=== PATIENT | female | born 2000 | race Hispanic/Latino ===

== ENCOUNTER 2019-03-14 00:09 | Emergency (ER) | payer MEDICAID ==
[2019-03-14 00:51] LABS: BASOPHILS % (AUTO) 0.3 % (0.0-5.0); EOSINOPHILS % (AUTO) 1.7 % (0.0-8.0); HEMATOCRIT 35.5 % (36-48); LYMPHOCYTES % (AUTO) 33.2 % (21.0-51.0); MEAN CORPUSCULAR HEMOGLOBIN 30.5 pg (27.0-33.0); MEAN CORPUSCULAR HGB CONC 34.9 g/dL (32.0-36.0); MEAN CORPUSCULAR VOLUME 87.4 fL (80-100); MONOCYTES % (AUTO) 8.4 % (3.0-13.0); NEUTROPHILS % (AUTO) 56.2 % (40.0-77.0); PLATELET COUNT (AUTO) 148 K/uL (130-400); RED BLOOD CELL COUNT(AUTO) 4.06 MIL/uL (4.00-5.50); RED CELL DISTRIBUTION WIDTH 12.2 % (11.0-15.5); WHITE BLOOD COUNT (AUTO) 6.1 K/uL (4.8-10.8)
[2019-03-14 00:53] LABS: APPEARANCE,URINE Clear (CLEAR); BILIRUBIN,URINE Negative (NEGATIVE); COLOR,URINE Yellow (YELLOW); GLUCOSE, URINE (UA) Negative (NEGATIVE); KETONES,URINE Negative (NEGATIVE); LEUKOCYTE ESTERASE ,URINE Negative (NEGATIVE); NITRATE,URINE Negative (NEGATIVE); OCCULT BLOOD,URINE Small (NEGATIVE); PH,URINE 6.5 (5.0-8.0); PROTEIN,URINE Negative (NEGATIVE)
[2019-03-14 00:58] LABS: CREATININE 0.5 mg/dL (0.5-1.5); POTASSIUM 3.6 mmol/L (3.5-5.1)
[2019-03-14 01:05] LABS: BACTERIA,URINE None Seen /HPF (None Seen); MUCUS,URINE Rare LPF (None Seen); SQUAMOUS EPITHELIAL CELL,UR Few /HPF (0-2); WBC,URINE None Seen /HPF (0-1)
[2019-03-14 01:24] LABS: ALBUMIN 3.2 g/dL (3.5-5.0); BILIRUBIN,TOTAL 0.1 mg/dL (0.2-1.0)
== END 2019-03-14 02:12 | disposition home or self-care (01) ==
LOC: EDH 00:09
DX: O20.0 Threatened abortion (principal); Z3A.12 12 weeks gestation of pregnancy
CPT/HCPCS: 36415; 76801; 80053; 81001; 84702; 85025; 86900; 86901

== ENCOUNTER 2019-04-12 17:42 | Emergency (ER) | payer MEDICAID ==
[2019-04-12 19:12] LABS: APPEARANCE,URINE Clear (CLEAR); BILIRUBIN,URINE Negative (NEGATIVE); COLOR,URINE Yellow (YELLOW); GLUCOSE, URINE (UA) Negative (NEGATIVE); KETONES,URINE Negative (NEGATIVE); LEUKOCYTE ESTERASE ,URINE Negative (NEGATIVE); NITRATE,URINE Negative (NEGATIVE); OCCULT BLOOD,URINE Negative (NEGATIVE); PH,URINE 6.5 (5.0-8.0); PROTEIN,URINE Negative (NEGATIVE)
[2019-04-12] MEDS ORDERED: SODIUM CHLORIDE 0.9% 1000ML 1,000 ML IV ONE (19:27)
[2019-04-12 19:35] LABS: BASOPHILS % (AUTO) 0.1 % (0.0-5.0); EOSINOPHILS % (AUTO) 0.7 % (0.0-8.0); HEMATOCRIT 39.2 % (36-48); LYMPHOCYTES % (AUTO) 21.5 % (21.0-51.0); MEAN CORPUSCULAR HEMOGLOBIN 30.2 pg (27.0-33.0); MEAN CORPUSCULAR HGB CONC 34.2 g/dL (32.0-36.0); MEAN CORPUSCULAR VOLUME 88.3 fL (80-100); MONOCYTES % (AUTO) 9.9 % (3.0-13.0); NEUTROPHILS % (AUTO) 67.4 % (40.0-77.0); PLATELET COUNT (AUTO) 190 K/uL (130-400); RED BLOOD CELL COUNT(AUTO) 4.44 MIL/uL (4.00-5.50); RED CELL DISTRIBUTION WIDTH 12.8 % (11.0-15.5)
[2019-04-12 19:46] LABS: CREATININE 0.5 mg/dL (0.5-1.5); POTASSIUM 3.7 mmol/L (3.5-5.1)
[2019-04-12 20:12] LABS: ALBUMIN 3.5 g/dL (3.5-5.0); BILIRUBIN,TOTAL 0.2 mg/dL (0.2-1.0); TOTAL PROTEIN, SERUM 8.2 g/dL (6.0-8.3)
== END 2019-04-12 21:49 | disposition home or self-care (01) ==
LOC: EDH 17:42
DX: O20.0 Threatened abortion (principal); Z3A.16 16 weeks gestation of pregnancy
CPT/HCPCS: 36415; 76805; 80053; 81003; 84702; 85025; 86900; 86901; 99285; J7030

== ENCOUNTER 2019-08-15 12:27 | Observation (INO) | payer BC, MEDICAID ==
[~2019-08-15] VITALS: Ht 160 cm; Wt 77.1 kg
[2019-08-15 13:22] LABS: APPEARANCE,URINE Cloudy (CLEAR); BILIRUBIN,URINE Negative (NEGATIVE); COLOR,URINE Yellow (YELLOW); GLUCOSE, URINE (UA) Negative (NEGATIVE); KETONES,URINE 15 mg/dL (NEGATIVE); LEUKOCYTE ESTERASE ,URINE Moderate (NEGATIVE); NITRATE,URINE Negative (NEGATIVE); OCCULT BLOOD,URINE Negative (NEGATIVE); PROTEIN,URINE Negative (NEGATIVE)
[2019-08-15 13:28] LABS: BACTERIA,URINE Rare /HPF (None Seen); RBC,URINE 0-1 /HPF (0-1); SQUAMOUS EPITHELIAL CELL,UR Moderate /HPF (0-2)
[2019-08-15] MEDS ORDERED: LACTATED RINGERS 1000ML 1,000 ML IV SCH (13:30)
[2019-08-15] MEDS ORDERED: TERBUTALINE SULFATE VIAL 1MG/ML SQ SCH ×2 (13:30)
== END 2019-08-15 14:50 | disposition home or self-care (01) ==
LOC: EDH 12:27 → LDH 12:40
PROVIDERS: ADMIT Specialist; ATTEND Specialist
DX: O26.893 Other specified pregnancy related conditions, third trimester (principal); R10.9 Unspecified abdominal pain; Z3A.34 34 weeks gestation of pregnancy
CPT/HCPCS: 81001; 87088; 99284; G0378 ×2; J7120; 96360

== ENCOUNTER 2019-08-30 22:43 | Observation (INO) | payer BC, MEDICAID ==
[~2019-08-30] VITALS: Ht 157.5 cm; Wt 81.2 kg
[2019-08-30 23:29] LABS: APPEARANCE,URINE Clear (CLEAR); BILIRUBIN,URINE Negative (NEGATIVE); COLOR,URINE Yellow (YELLOW); GLUCOSE, URINE (UA) Negative (NEGATIVE); KETONES,URINE Trace mg/dL (NEGATIVE); LEUKOCYTE ESTERASE ,URINE Moderate (NEGATIVE); NITRATE,URINE Negative (NEGATIVE); OCCULT BLOOD,URINE Negative (NEGATIVE); PH,URINE 6.5 (5.0-8.0); PROTEIN,URINE Negative (NEGATIVE)
[2019-08-30 23:38] LABS: BACTERIA,URINE Few /HPF (None Seen); RBC,URINE 0-1 /HPF (0-1); SQUAMOUS EPITHELIAL CELL,UR Moderate /HPF (0-2)
[2019-09-15] MEDS ORDERED: PREN-18 PO (03:19)
== END 2019-08-30 23:55 | disposition home or self-care (01) ==
LOC: EDH 22:43 → LDH 22:44
PROVIDERS: ADMIT Specialist; ATTEND Specialist
DX: O26.893 Other specified pregnancy related conditions, third trimester (principal); R10.9 Unspecified abdominal pain; Z3A.37 37 weeks gestation of pregnancy
CPT/HCPCS: 81001; 87088; 99283; G0378

== ENCOUNTER 2019-09-13 12:47 | Inpatient (IN) | payer BC, MEDICAID ==
[~2019-09-13] VITALS: Ht 160 cm; Wt 79.8 kg
[2019-09-13] MEDS ORDERED: EPHEDRINE SULFATE 50 MG/ML AMPULE IVP PRN (17:30)
[2019-09-13] MEDS ORDERED: PROMETHAZINE HCL 25 MG/ML 1ML AMPULE IM PRN (17:30)
[2019-09-13] MEDS ORDERED: NALOXONE HCL 0.4 MG/1 ML ML IV PRN (17:30)
[2019-09-13] MEDS ORDERED: LACTATED RINGERS 500 ML 500 ML IV PRN (17:30)
[2019-09-13] MEDS ORDERED: MEPERIDINE-PF 50 MG/ML SYG IVP PRN (17:30)
[2019-09-13] MEDS: LACTATED RINGERS 1000ML 1,000 ML IV PRN (21:00)
[2019-09-14] VITALS: BP 138/75
[2019-09-14] MEDS: LACTATED RINGERS 1000ML 1,000 ML IV PRN (04:10)
[2019-09-14] MEDS ORDERED: OXYTOCIN-LR 20 UNITS/1000 ML 1,000 ML IV ONE ×2 (06:26→11:25)
[2019-09-14] MEDS ORDERED: OXYTOCIN 10 USP UNITS/ML 20 UNIT in LACTATED RINGERS 1000ML 1,000 ML IV SCH (06:30)
[2019-09-14] MEDS ORDERED: ROPIVACAINE 0.2% 100ML VIAL 100 ML EP SCH (12:00)
[2019-09-14] MEDS ORDERED: OXYTOCIN-LR 20 UNITS/1000 ML 2,000 ML IV ONE (16:28)
[2019-09-14] MEDS ORDERED: CEFAZOLIN SODIUM 1 GM VIAL ONE (16:28)
[2019-09-14] MEDS ORDERED: CEFAZOLIN SODIUM 1 GM VIAL IVP PRN (16:30)
[2019-09-14] MEDS ORDERED: DURAMORPH PF1 MG/ML 10ML AMP IV ONE (16:58)
[2019-09-14] MEDS ORDERED: CEFAZOLIN SODIUM 1 GM VIAL IVP ONE (17:05)
[2019-09-14 19:20] VITALS: BP 134/79; PULSE 83; RESP 20; TEMP 99.6
[2019-09-14] MEDS ORDERED: MEPERIDINE-PF 25 MG/ML SYG ONE (21:47)
--- NOTE | 2019-09-14 22:53 | NUR ---
DEMEROL 50 MG AND DEMEROL 25 MG GIVEN WITH PHENERGAN 25 MG IM TO RIGHT GLUTEAL
[2019-09-14 23:28] VITALS: BP 115/56; PULSE 83; RESP 20; TEMP 98.8
[2019-09-15 03:40] VITALS: BP 120/58; PULSE 83; RESP 20; TEMP 99.3
[2019-09-15 07:42] VITALS: BP 104/66; PULSE 86; RESP 18; TEMP 99.6
[2019-09-15] MEDS ORDERED: HYDROCODONE/ACETAMINOPHEN 5/325 MG TAB ONE ×2 (07:50→07:51)
[2019-09-15] MEDS ORDERED: BISACODYL 10 MG SUPP.RECT RC PRN (08:00)
[2019-09-15] MEDS ORDERED: HYDROCODONE/ACETAMINOPHEN 5/325 MG TAB PO PRN (08:00)
[2019-09-15] MEDS ORDERED: LANOLIN 30GM OINTMENT TP PRN (08:00)
[2019-09-15] MEDS ORDERED: ACETAMINOPHEN EXTRA STRENGTH 500 MG TABLET PO PRN (08:00)
[2019-09-15] MEDS: DOCUSATE SODIUM 100 MG CAP PO SCH ×2 (09:38→21:41)
[2019-09-15 11:37] VITALS: BP 93/54; PULSE 92; RESP 18; TEMP 98.2
[2019-09-15] MEDS: ACETAMINOPHEN-CODEINE 300/30MG TAB PO PRN (14:42)
[2019-09-15] MEDS ORDERED: DIPH,PERTUSS(ACELL),TET VAC/PF 0.5 ML VIAL IM SCH (16:00)
[2019-09-15 16:32] VITALS: BP 128/69; PULSE 97; RESP 18; TEMP 99.4
[2019-09-15 20:00] VITALS: BP 114/61; PULSE 98; RESP 18; TEMP 98.9
[2019-09-15] MEDS: SIMETHICONE 80 MG TAB.CHEW PO PRN (21:40)
[2019-09-15] MEDS: IBUPROFEN 600 MG TABLET PO PRN (21:42)
[2019-09-16 00:35] VITALS: BP 117/54; PULSE 98; RESP 18; TEMP 98.4
[2019-09-16 03:10] VITALS: BP 119/66; PULSE 82; RESP 18; TEMP 98.1
[2019-09-16] MEDS: ACETAMINOPHEN-CODEINE 300/30MG TAB PO PRN (03:15)
[2019-09-16] MEDS: IBUPROFEN 600 MG TABLET PO PRN ×2 (04:18→13:12)
[2019-09-16 07:41] VITALS: BP 105/55; PULSE 74; RESP 18; TEMP 97.7
[2019-09-16] MEDS: DOCUSATE SODIUM 100 MG CAP PO SCH (09:02)
[2019-09-16] MEDS: SIMETHICONE 80 MG TAB.CHEW PO PRN (09:02)
--- NOTE | 2019-09-16 10:00 | NUR ---
DISCHARGE INSTRUCTIONS READ AND REVIEWED WITH PATIENT. REEDUCATED PATIENT ON INCISION CARE, HEMORRHAGE, COVID 19 PRECAUTIONS AND CONTINUATION OF INCENTIVE SPIROMETER USE. RX FOR TYLENOL #3 HANDED TO PATIENT. PATIENT VOICED UNDERSTANDING ON ALL INSTRUCTIONS.
[2019-09-16 11:13] VITALS: BP 109/81; PULSE 98; RESP 18; TEMP 98.2
--- NOTE | 2019-09-16 13:40 | NUR ---
PATIENT LEFT UNIT VIA WHEELCHAIR WITH BELONGINGS IN HAND. PERSONAL VEHICLE USED FOR TRANSPORTATION. BABY SECURE IN CARSEAT. NO COMPLAINTS OR CONCERNS ADDRESSED FROM PATIENT ON DISCHARGE.
== END 2019-09-16 13:40 | disposition home or self-care (01) | DRG 788 ==
LOC: EDH 12:47 → LDH 12:48 → OBSVTOIN 15:08 → LDH 17:30 → WSH 09-14 19:15
PROVIDERS: ADMIT Specialist; ATTEND Specialist
PROC: 3E0234Z Introduction of Serum, Toxoid and Vaccine into Muscle, Percutaneous Approach (ICD-10-PCS; 2019-09-14)
PROC: 10D00Z1 Extraction of Products of Conception, Low, Open Approach (ICD-10-PCS; principal; 2019-09-14 16:55)
DX: O35.9XX0 Maternal care for (suspected) fetal abnormality and damage, unspecified, not applicable or unspecified (principal); Z37.0 Single live birth; Z23 Encounter for immunization; Z3A.38 38 weeks gestation of pregnancy

== ENCOUNTER → 2023-04-08 | Outpatient (CLI) | payer MEDICAID ==
[~2023-04-08] MED LIST: PREN-18 PO
[2023-04-08 13:03] LABS: ALBUMIN 2.5 g/dL (3.5-5.0); BILIRUBIN,TOTAL 0.2 mg/dL (0.2-1.0); CREATININE 0.5 mg/dL (0.5-1.5); POTASSIUM 4.1 mmol/L (3.5-5.1); T4 (THYROXINE) 12.9 ug/dL (4.7-13.3); THYROID STIMULATING HORMONE 1.07 uIU/mL (0.36-3.74); TOTAL PROTEIN, SERUM 6.6 g/dL (6.0-8.3)
== END | disposition home or self-care (01) ==
LOC: LAB 10:03
PROVIDERS: ATTEND Physician Assistant
DX: R00.0 Tachycardia, unspecified (principal); R00.2 Palpitations; R42 Dizziness and giddiness
CPT/HCPCS: 36415; 80053; 83735; 84436; 84443; 93306